=== PATIENT | female | born 1955 | race Caucasian/White ===

== ENCOUNTER 2017-12-08 14:30 | Emergency (ER) | payer OTHER ==
[2017-12-08] MEDS: HYDROCODONE/APAP (5/325) TAB PO (17:02)
== END 2017-12-08 19:35 | disposition home or self-care (01) ==
LOC: FTE 14:30
DX: S52.102A Unspecified fracture of upper end of left radius, initial encounter for closed fracture (principal); I10 Essential (primary) hypertension; W01.198A Fall on same level from slipping, tripping and stumbling with subsequent striking against other object, initial encounter; Y92.007 Garden or yard of unspecified non-institutional (private) residence as the place of occurrence of the external cause; Z98.61 Coronary angioplasty status
CPT/HCPCS: 73080; 73080-LT; 73090; 73110-LT; 99283-25